=== PATIENT | female | born 1960 | race Caucasian/White ===

== ENCOUNTER 2017-01-26 12:50 | Inpatient (IN) | payer MEDICAID ==
[2017-01-26 13:11] LABS: % BASOPHILS 0.8 % (0.0-2.0); % EOSINOPHILS 0.1 % (0.0-5.0); % LYMPHOCYTES 19.9 % (20.0-50.0); % MONOCYTES 8.4 % (2.0-10.0); % NEUTROPHILS 70.8 % (40.0-80.0); HEMATOCRIT 43.9 % (35.0-45.0); HEMOGLOBIN 14.8 gm/dL (11.7-15.5); MEAN CELL VOLUME 101.4 fl (81-100); MEAN CORPUSCULAR HEMOGLOBIN 34.3 pg (27.0-31.0); MEAN CORPUSCULAR HGB CONC 33.8 pg (28.0-36.0); MEAN PLATELET VOLUME 7.4 fl; NEUTROPHILE ABSOLUTE 6.9 Th/cmm (1.8-8.0); PLATELET COUNT 259 Th/cmm (150-400); RED BLOOD COUNT 4.33 Mil/cmm (3.80-5.10); WHITE BLOOD COUNT 9.8 Th/cmm (4.8-10.8)
[2017-01-26 13:28] LABS: CHOLESTEROL 144 mg/dL (<200); TRIGLYCERIDES 99 mg/dL (<150)
[2017-01-26 13:30] LABS: ALB/GLOB RATIO 1.1 (1.0-1.8); ALKALINE PHOSPHATASE 119 U/L (34-104); ANION GAP 8.6 (7.0-16.0); BILIRUBIN,TOTAL 0.4 mg/dL (0.3-1.0); BUN - UREA NITROGEN 8 mg/dL (7-25); BUN/CREATININE RATIO 13.3; CALCIUM SERUM 8.7 mg/dL (8.6-10.3); CHLORIDE 102 mEq/L (98-107); CREATININE - SERUM 0.6 mg/dL (0.6-1.2); GLUCOSE 135 mg/dL (70-105); POTASSIUM SERUM 3.6 mEq/L (3.5-5.1); SGOT 22 U/L (13-39); SGPT/ALT 15 U/L (7-52); SODIUM SERUM 130 mEq/L (136-145)
--- NOTE | 2017-01-26 13:30 | ED Physician Chart ---
ED Chief Complaint/HPI - Patient Information Date Seen:: 01/26/17 Time Seen:: 13:00 Chief Complaint:: RIGHT LEG PAIN History of Present Illness:: THIS IS A MENTALLY ILL SENIOR LIVING PATIENT WHO WAS SENT HERE FOR AN EVALUATION OF RIGHT HIP AND RIGHT KNEE. SHE STATES THAT SHE DID NOT FALL OR HAVE ANY UNUSUAL ACTIVITY. SHE IS CHRONICALLY ILL WITH MULTIPLE MEDICAL PROBLEMS. Allergies:: Allergies Allergy/AdvReac Type Severity Reaction Status Date / Time No Known Allergies Allergy Verified 01/26/17 12:51 Vitals:: Vital Signs - 8 hr 01/26/17 12:51 Temp 99.7 F HR 86 RR 17 BP 119/87 O2 Sat % 94 Historian:: EMS, Medical Records Review:: Nurse's Note Reviewed, Old Chart Reviewed, Transfer documents Reviewed ED Review of Systems - Review of Systems General/Constitutional: No fever, No chills, No weight loss, No weakness, No diaphoresis, No edema, No loss of appetite Skin: No skin lesions, No rash, No bruising Head: No headache, No light-headedness Eyes: No loss of vision, No pain, No diplopia ENT: No earache, No nasal drainage, No sore throat, No tinnitus Neck: No neck pain, No swelling, No thyromegaly, No stiffness, No mass noted Cardio Vascular: No chest pain, No palpitations, No PND, No orthopnea, No edema Pulmonary: No SOB, No cough, No sputum, No wheezing GI: No nausea, No vomiting, No diarrhea, No pain, No melena, No hematochezia, No constipation, No hematemesis G/U: No dysuria, No frequency, No hematuria Musculoskeletal: Bone or joint pain (RIGHT HIP AND KNEE), No back pain, No muscle pain Endocrine: No polyuria, No polydipsia Psychiatric: No prior psych history, No depression, No anxiety, No suicidal ideation Hematopoietic: No bruising, No lymphadenopathy Allergic/Immuno: No urticaria, No angioedema Neurological: No syncope, No focal symptoms, No weakness, No paresthesia, No headache, No seizure, No dizziness, No confusion, No vertigo ED Past Medical History - Past Medical History Obtainable: Yes Past Medical History: HTN, Arthritis, Dementia, Other (HIV) Social History: Non Smoker, No Alcohol, No Drug Use, Care Facility Medication: Reviewed Family Medical History - Family Member Mother History Unknown: Yes ED Physical Exam - Physical Examination General/Constitutional: Awake, Well-developed, well-nourished, Alert, No distress, GCS 15, Non-toxic appearing, Ambulatory Head: Atraumatic Eyes: Lids, conjuctiva normal, PERRL, EOMI Skin: Nl inspection, No rash, No skin lesions, No ecchymosis, Well hydrated, No lymphadenopathy ENMT: External ears, nose nl, Nasal exam nl, Lips, teeth, gums nl Neck: Nontender, Full ROM w/o pain, No JVD, No nuchal rigidity, No bruit, No mass, No stridor Respiratory: Nl effort/Exclusion, Clear to Auscultation, No Wheeze/Rhonchi/Rales Cardio Vascular: RRR, No murmur, gallop, rubs, NL S1 S2 GI: No tenderness/rebounding/guarding, No organomegaly, No hernia, Normal BS's, Nondistended, No mass/bruits, No McBurney tenderness : No CVA tenderness Extremities: No tenderness or effusion, Full ROM, normal strength in all extremities, No edema, Normal digits & nails Neuro/Psych: Alert/oriented, DTR's symmetric, Normal sensory exam, Normal motor strength, Mood normal, Normal gait, No focal deficits Other Neuro/Psych comments:: MENTAL OFF Misc: normal gait, Normal back, No paraspinal tenderness ED Labs/Radiology/EKG Results - Lab Results Results: Laboratory Tests 01/26/17 13:05 WBC 9.8 RBC 4.33 Hgb 14.8 Hct 43.9 MCV 101.4 H MCH 34.3 H MCHC Differential 33.8 RDW 13.0 Plt Count 259 MPV 7.4 Neutrophils % 70.8 Lymphocytes % 19.9 L Monocytes % 8.4 Eosinophils % 0.1 Basophils % 0.8 ED Septic Shock - . Is Septic Shock (SBP<90, OR Lactate>4 mmol\L) present?: No - <6hrs of presentation: Vital Signs: Vital Signs - 8 hr 01/26/17 12:51 Temp 99.7 F HR 86 RR 17 BP 119/87 O2 Sat % 94
[2017-01-26 13:48] LABS: INR 0.96 (0.5-1.4)
--- NOTE | 2017-01-26 14:16 | Diagnostic Imaging Report ---
Right hip 2 views Indication: pain Comparison: Right knee x-ray the same day Findings: A bipolar right hip and knee arthroplasty seen. There is 1 to 2 mm lucency seen along the cement bone interface of the femoral component. No evidence of an acute fracture or dislocation. Mild degenerative changes of lower lumbar spine are noted. Impression: Bipolar right hip hemiarthroplasty. No evidence of an acute fracture. 1 to 2 mm lucency seen along the cement-bone interface of the femoral prosthesis. This may be within normal limits. Early hardware loosening is considered less likely, however, correlation should be made clinically. In the setting of trauma, if clinical symptoms persist and there is continued concern for an occult fracture, follow up exams in 5-7 days is suggested.
--- NOTE | 2017-01-26 14:17 | Diagnostic Imaging Report ---
Right knee 3 views Indication: pain Comparison: none Findings: Osteopenia is noted. There may have been old trauma to the proximal right fibula. Stress lines versus less likely small enchondromas of the distal femur are noted. [id number] degenerative changes are seen greatest along the lateral knee compartment with chondrocalcinosis noted. No evidence of acute fracture or joint effusion. Distal quadriceps spurring is noted. Impression: No evidence of an acute fracture. Mild to moderate degenerative changes Osteopenia is suspected. Chondrocalcinosis primarily involving the lateral knee compartment. Stress lines versus less likely small enchondromas of the distal femur. In the setting of trauma, if clinical symptoms persist and there is continued concern for an occult fracture, follow up exams in 5-7 days is suggested.
--- NOTE | 2017-01-26 15:39 | Diagnostic Imaging Report ---
CT abdomen and pelvis without intravenous contrast Indication: Abdominal pain Comparison: None, Technique: Axial images were obtained from the lung bases to the bilateral proximal femurs without IV contrast. Coronal reconstructions were made. total DLP: 545, CTDI11.8 FINDINGS: Hypoventilatory atelectatic changes at lung bases are noted. Exam is limited due to motion. Assessment of solid organs is also limited due to lack of IV contrast. No evidence of focal hepatic lesions. No focal splenic or pancreatic lesions identified. There is mild pancreatic gland atrophy. Minimal haziness is seen adjacent the pancreatic head. No focal adrenal lesions. No evidence of hydronephrosis or focal renal lesions. Small fat-containing umbilical hernia is seen. Distended urinary bladder is noted. Copious stool is noted. No evidence of appendicitis. Streak artifact from patient's right hip arthroplasty limits assessment of the pelvis. No free air or free fluid. Mild atherosclerosis is noted. There is a moderate age-indeterminate compression fracture of superior endplate of T12 with 3 to 4 mm posterior retropulsion. Advanced degenerative changes are seen at L5/S1 with 4 mm posterior disc bulging and vacuum disc phenomenon at this level. IMPRESSION: Copious amount of stool noted. Mild haziness is adjacent to the pancreatic head margins. Changes associated with pancreatitis cannot be completely excluded. Please correlate with clinical findings. Moderate age-indeterminate compression fracture of the superior endplate of T12 with 3 to 4 mm posterior retropulsion. Advanced degenerative changes spine at L5/S1.
[2017-01-26] MEDS ORDERED: Albuterol Nebulizer 2.5mg/3mL HHN PRN (20:28)
[2017-01-27 03:39] VITALS: BP 101/64
[2017-01-27] MEDS: D5-0.9%NS 1,000 ML IV SCH ×2 (09:49→21:48)
[2017-01-27] MEDS: Escitalopram Oxalate 5 mg Tab PO SCH (09:57)
[2017-01-27] MEDS: Multivitamin Tab PO SCH (09:58)
[2017-01-27] MEDS: Pantoprazole 40 mg EC Tab PO SCH ×2 (09:58→16:55)
--- NOTE | 2017-01-27 12:08 | Internal Medicine Prog Note ---
Internal Medicine Subjective - Subjective Service Date: 01/27/17 ([id number] [facility] dictated) Internal Medicine Objective - Results Result Diagrams: 01/26/17 13:05 01/26/17 13:05 Recent Labs: Laboratory Last Values WBC 9.8 Th/cmm (4.8-10.8) 01/26/17 13:05 RBC 4.33 Mil/cmm (3.80-5.10) 01/26/17 13:05 Hgb 14.8 gm/dL (11.7-15.5) 01/26/17 13:05 Hct 43.9 % (35.0-45.0) 01/26/17 13:05 MCV 101.4 fl (81-100) H 01/26/17 13:05 MCH 34.3 pg (27.0-31.0) H 01/26/17 13:05 MCHC Differential 33.8 pg (28.0-36.0) 01/26/17 13:05 RDW 13.0 % (11.5-20.0) 01/26/17 13:05 Plt Count 259 Th/cmm (150-400) 01/26/17 13:05 MPV 7.4 fl 01/26/17 13:05 Neutrophils % 70.8 % (40.0-80.0) 01/26/17 13:05 Lymphocytes % 19.9 % (20.0-50.0) L 01/26/17 13:05 Monocytes % 8.4 % (2.0-10.0) 01/26/17 13:05 Eosinophils % 0.1 % (0.0-5.0) 01/26/17 13:05 Basophils % 0.8 % (0.0-2.0) 01/26/17 13:05 PT 10.0 SECONDS (9.5-11.5) 01/26/17 13:05 INR 0.96 (0.5-1.4) 01/26/17 13:05 PTT (Actin FS) 26.6 SECONDS (26.0-38.0) 01/26/17 13:05 Sodium 130 mEq/L (136-145) L 01/26/17 13:05 Potassium 3.6 mEq/L (3.5-5.1) 01/26/17 13:05 Chloride 102 mEq/L (98-107) 01/26/17 13:05 Carbon Dioxide 23.0 mEq/L (21.0-31.0) 01/26/17 13:05 Anion Gap 8.6 (7.0-16.0) 01/26/17 13:05 BUN 8 mg/dL (7-25) 01/26/17 13:05 Creatinine 0.6 mg/dL (0.6-1.2) 01/26/17 13:05 Est GFR ( Amer) > 60.0 ml/min (>90) 01/26/17 13:05 Est GFR (Non-Af Amer) > 60.0 ml/min 01/26/17 13:05 BUN/Creatinine Ratio 13.3 01/26/17 13:05 Glucose 135 mg/dL (70-105) H 01/26/17 13:05 Calcium 8.7 mg/dL (8.6-10.3) 01/26/17 13:05 Total Bilirubin 0.4 mg/dL (0.3-1.0) 01/26/17 13:05 AST 22 U/L (13-39) 01/26/17 13:05 ALT 15 U/L (7-52) 01/26/17 13:05 Alkaline Phosphatase 119 U/L (34-104) H 01/26/17 13:05 Troponin I 0.01 ng/mL (0.01-0.05) 01/26/17 13:05 Total Protein 7.0 gm/dL (6.0-8.3) 01/26/17 13:05 Albumin 3.7 gm/dL (3.7-5.3) 01/26/17 13:05 Globulin 3.3 gm/dL 01/26/17 13:05 Albumin/Globulin Ratio 1.1 (1.0-1.8) 01/26/17 13:05 Triglycerides 99 mg/dL (<150) 01/26/17 13:05 Cholesterol 144 mg/dL (<200) 01/26/17 13:05 LDL Cholesterol Direct 92 mg/dL (75-193) 01/26/17 13:05 HDL Cholesterol 50 mg/dL (23-92) 01/26/17 13:05 TSH 1.94 uIU/ml (0.34-5.60) 01/26/17 13:05 Phenytoin 11.1 ug/ml (10.0-20.0) 01/26/17 13:05 - Physical Exam Vitals and I&O: Vital Signs Temp 98.5 F 01/27/17 04:00 Pulse 73 01/27/17 12:04 Resp 19 01/27/17 04:00 BP 109/64 01/27/17 12:04 Pulse Ox 100 01/27/17 04:00 Intake & Output 01/26/17 01/27/17 01/27/17 18:59 06:59 18:59 Intake Total 0 Balance 0 Weight (lbs) 156 lb 1.6 oz Intake: Oral 0 Other: # Voids 2 # Bowel Movements 0 Active Medications: Current Medications Acetaminophen (Tylenol) 650 mg PO Q4H PRN PRN Reason: Pain Or Fever above 101 Stop: 03/27/17 20:27 Albuterol Sulfate (Albuterol 2.5mg/3ml Neb Ud) 2.5 mg HHN Q4HRT PENDING SALE TO [facility] Stop: 03/28/17 10:59 Albuterol Sulfate (Albuterol 2.5mg/3ml Neb Ud) 2.5 mg HHN Q2HRT PRN PRN Reason: Shortness of Breath or Wheeze Stop: 03/27/17 20:27 Alendronate Sodium (Fosamax) 70 mg PO Q7D@0730 PENDING SALE TO [facility] Stop: 04/02/17 07:29 Aspirin (Ecotrin) 81 mg PO DAILY PENDING SALE TO [facility] Stop: 03/28/17 08:59 Last Admin: 01/27/17 09:57 Dose: Not Given Baclofen (Lioresal) 5 mg PO DAILY RIK Stop: 03/28/17 08:59 Last Admin: 01/27/17 09:57 Dose: Not Given Budesonide (Pulmicort) 0.5 mg HHN BIDRT PENDING SALE TO [facility] Stop: 03/28/17 08:59 Calcium Carbonate (Os-Howard) 500 mg PO BID PENDING SALE TO [facility] Stop: 03/28/17 08:59 Last Admin: 01/27/17 09:57 Dose: Not Given Cholecalciferol (Vitamin D3) 1,000 iu PO BID PENDING SALE TO [facility] Stop: 03/28/17 08:59 Last Admin: 01/27/17 09:57 Dose: Not Given Docusate Sodium (Colace) 100 mg PO BID PENDING SALE TO [facility] Stop: 03/28/17 08:59 Last Admin: 01/27/17 12:05 Dose: Not Given Enalapril Maleate (Vasotec) 5 mg PO BID PENDING SALE TO [facility] Stop: 03/28/17 08:59 Last Admin: 01/27/17 12:04 Dose: Not Given Escitalopram Oxalate (Lexapro) 5 mg PO DAILY RIK PRN Reason: Protocol Stop: 03/28/17 08:59 Last Admin: 01/27/17 09:57 Dose: Not Given Dextrose/Sodium Chloride (D5-0.9%Ns) 1,000 mls @ 80 mls/hr IV .[id number] PENDING SALE TO [facility] Stop: 03/27/17 20:29 Last Admin: 01/27/17 09:49 Dose: 80 mls/hr Ipratropium [place] (Atrovent Neb 0.5mg/2.5ml) 0.5 mg IH Q2HRT PRN PRN Reason: Shortness of Breath or Wheeze Stop: 03/27/17 20:27 Mirtazapine (Remeron) 15 mg PO HS RIK PRN Reason: Protocol Stop: 03/27/17 20:59 Last Admin: 01/26/17 20:43 Dose: Not Given Morphine Sulfate (Morphine) 2 mg IVP Q4H PRN PRN Reason: Abdominal Pain Stop: 03/27/17 20:27 Multivitamins/Vitamin C (Theragran) 1 tab PO DAILY PENDING SALE TO [facility] Stop: 03/28/17 08:59 Last Admin: 01/27/17 09:58 Dose: Not Given Olanzapine (Zyprexa) 15 mg PO HS RIK PRN Reason: Protocol Stop: 03/27/17 20:59 Last Admin: 01/26/17 20:43 Dose: Not Given Ondansetron HCl (Zofran) 4 mg IV Q8H PRN PRN Reason: Nausea / Vomiting Stop: 03/27/17 20:27 Oxybutynin Chloride (Ditropan) 5 mg PO BID PENDING SALE TO [facility] Stop: 03/28/17 08:59 Last Admin: 01/27/17 09:58 Dose: Not Given Pantoprazole Sodium (Protonix) 40 mg PO BID PENDING SALE TO [facility] Stop: 03/28/17 08:59 Last Admin: 01/27/17 09:58 Dose: Not Given Sustiva 600mg Tablet 1 PO HS PENDING SALE TO [facility] Stop: 03/27/17 20:59 Emtrictabine/Tenofofir 200mg-25mg Tab 1 PO HS RIK Stop: 03/27/17 20:59 Phenytoin (Dilantin) 100 mg PO BID RIK Stop: 03/28/17 08:59 Last Admin: 01/27/17 09:58 Dose: Not Given Simvastatin (Zocor) 20 mg PO QPM RIK PRN Reason: Protocol Stop: 03/28/17 16:59 Zolpidem Tartrate (Ambien) 10 mg PO HS PRN PRN Reason: Insomnia Stop: 03/27/17 20:27 Internal Medicine Assmt/Plan - Assessment Assessment: ABDOMINAL PAIN HTN HIV HYPONATREMIA
--- NOTE | 2017-01-27 13:20 | History & Physical ---
ADMIT DATE: 01/27/2017 CHIEF COMPLAINT: Abdominal pain. HISTORY OF PRESENT ILLNESS: This is a 56-year-old female who is a resident of [facility] who is brought here to [facility] with a 1-day history of abdominal pain. The patient denies any nausea, vomiting at this time. PAST MEDICAL HISTORY: Hypertension, arthritis, dementia, HIV. SOCIAL HISTORY: The patient is a [facility] resident. MEDICATIONS: Please see medication reconciliation sheet. FAMILY HISTORY: Noncontributory. REVIEW OF SYSTEMS: GENERAL: Denies any fevers and chills. CARDIOVASCULAR: Denies any chest pain. RESPIRATORY: Denies any shortness of breath. GASTROINTESTINAL: Denies any nausea, vomiting, complaints of abdominal pain. All other systems are reviewed by me and are negative. PHYSICAL EXAMINATION: GENERAL: The patient is awake, alert, in no distress. VITAL SIGNS: Temperature 99.5, heart rate 75, blood pressure 133/71, respirations 19, O2 100%. HEENT: Head; normocephalic, atraumatic. NECK: Supple. No mass. LUNGS: Clear bilaterally. HEART: Regular rate and rhythm. ABDOMEN: Soft, nontender. LABORATORY DATA: WBC 9.8, H and H 14.8 and 43.9, platelets of 259. Sodium 130, potassium 2.6, chloride 102, carbon dioxide 23.0, BUN 8, creatinine 0.6. DIAGNOSTICS: The patient had a CT of the abdomen and pelvis done and the impression is copious amount of stool noted, mild haziness adjacent to the pancreatic head margins, changes associated with pancreatitis cannot be completely excluded. Please correlate with clinical findings, moderate age indeterminant compression fracture of the superior endplate of T12 with 3-4 mm posterior retropulsion, advanced degenerative changes of spine at L5-S1. A knee x-ray was also obtained and the impression is no evidence of acute fracture. Hip x-ray was also done and impression is bipolar right hip hemiarthroplasty, no evidence of acute fracture. ASSESSMENT: 1. Abdominal pain. 2. Hyponatremia. 3. Hypertension. 4. Arthritis. 5. Dementia. 6. Human immunodeficiency virus. PLAN: The patient to be admitted to the med/surg unit. IV fluids for hydration. GI consult on board, Protonix b.i.d. We will continue to monitor the patient. [facility]# [id number]
[2017-01-27] MEDS: Morphine Sulfate 2 mg/mL 1mL Syr IVP PRN (21:39)
--- NOTE | 2017-01-27 21:53 | Consultation ---
DATE OF CONSULTATION: 01/27/2017 INPATIENT GI CONSULTATION CONSULTING PHYSICIAN: Dr. Angulo. REASON FOR CONSULTATION: Abdominal pain. HISTORY OF PRESENT ILLNESS: The patient is a 56-year-old female with past medical history significant for HIV, COPD, hypertension, and hyperlipidemia, who is presenting with abdominal pain. The patient reports that she actually reports her main issue to be right-sided leg pain and inability to ambulate. She notes that her pain is in her right knee all the way down to her right foot and that is causing her the inability to walk at her board and care facility. She repeatedly reports that she does not have any abdominal pain nor did she have any abdominal pain in the previous days. She does note that she has not had a bowel movement since last , which is about 6 days prior to admission. She notes that she usually takes laxatives [facility] her [facility], although she does not know which type they are. She denies any vomiting, any blood in her stool, change in bowel habits other than constipation. She denies any skin or eye changes, changes in mental concentration or tremor. She does report having a colonoscopy and thinks this was in 2007 and thinks this was normal. PAST MEDICAL HISTORY: HIV, COPD, hypertension, and hyperlipidemia. PAST SURGICAL HISTORY: Surgery on her right hip. FAMILY HISTORY: The patient denies any history of colon or GI stomach cancers. SOCIAL HISTORY: The [facility]. She smokes half a pack of cigarettes per day. Denies alcohol use. ALLERGIES: No known drug allergies. CURRENT MEDICATIONS: Tylenol, albuterol, alendronate, aspirin, baclofen, Pulmicort, vitamin D3, Vasotec, Lexapro, Remeron, morphine as needed, Zyprexa, Protonix, Emtricitabine, tenofovir, Dilantin, Ambien, and Zocor. PHYSICAL EXAMINATION: VITAL SIGNS: Blood pressure is 133/71, pulse of 75, temperature 98.5 Fahrenheit, respiratory rate 19, and oxygen saturation 100% on room air. GENERAL: The patient is lying flat in bed in no apparent distress. Alert and oriented x 3. HEENT: There is no scleral icterus. Pupils are equal and reactive. Extraocular muscles intact. Moist mucous membranes. NECK: No obvious JVD, no thyromegaly, and no lymphadenopathy. CHEST: No obvious wheezes or rales. CARDIOVASCULAR: S1, S2 present. Regular rate and rhythm. ABDOMEN: Soft, nontender to deep palpation with light palpation, no guarding, no rebound. No fluid wave. EXTREMITIES: No pitting edema. Positive pulses. SKIN: No obvious jaundice. No other rashes. LABORATORY DATA: Sodium is 130, potassium 3.6, BUN 8, creatinine 0.6, total bilirubin 0.4, AST 22, ALT 15, alkaline phosphatase 119. TSH 1.9. White blood cell count 9.8, hemoglobin 14.8, and platelet count 259,000. INR 0.9. IMAGING: Abdomen and pelvis CT was performed without contrast. This shows there is a copious amount of colonic stool. No evidence of appendicitis. No focal splenic or pancreatic lesion. Mild pancreatic gland atrophy. Minimal haziness is seen adjacent to the pancreatic head. Pancreatitis cannot be completely excluded. IMPRESSION: This is a 56-year-old female with past medical history significant for HIV on retroviral therapy, chronic obstructive pulmonary disease, who presents with right-sided leg pain and possibly with previous abdominal pain. 1. HIV. 2. Abdominal pain. 3. Constipation. 4. Chronic obstructive pulmonary disease. DISCUSSION: At the current time, the patient does not report any sort of abdominal pain . The history may be unreliable and she may have had abdominal pain at her board and care facility. She does note that her last bowel movement was several days ago, and her CT shows that her colon is full of stool. Thus, it is reasonable to assume that the obstipation may be causing some of her discomfort and she will do well with laxative therapy. The patient also is due for colonoscopy given that her last exam was in 2007, and she has not had a change in bowel habits. Thus, we will start laxative therapy today, but will not pursue colonoscopy tomorrow given her sodium level needs to be further corrected. If her sodium is better up tomorrow, we can continue laxatives and plan for colonoscopy the next day. PLAN: 1. Laxative therapy for now. Colonoscopy planned later in this admission. 2. Can have clears today. 3. Continue supportive care as per primary. I will continue to follow. Thank you for allowing me to participate in the care of this patient. Please call with any further questions. JOB# [id number]
[2017-01-28 06:09] LABS: % BASOPHILS 0.3 % (0.0-2.0); % EOSINOPHILS 0.6 % (0.0-5.0); % LYMPHOCYTES 24.4 % (20.0-50.0); % MONOCYTES 7.2 % (2.0-10.0); % NEUTROPHILS 67.5 % (40.0-80.0); HEMATOCRIT 41.2 % (35.0-45.0); HEMOGLOBIN 14.2 gm/dL (11.7-15.5); MEAN CELL VOLUME 100.4 fl (81-100); MEAN CORPUSCULAR HEMOGLOBIN 34.6 pg (27.0-31.0); MEAN CORPUSCULAR HGB CONC 34.5 pg (28.0-36.0); NEUTROPHILE ABSOLUTE 5.9 Th/cmm (1.8-8.0); PLATELET COUNT 239 Th/cmm (150-400); WHITE BLOOD COUNT 8.7 Th/cmm (4.8-10.8)
[2017-01-28 06:38] LABS: ANION GAP 9.8 (7.0-16.0); BUN - UREA NITROGEN 6 mg/dL (7-25); CALCIUM SERUM 8.4 mg/dL (8.6-10.3); CARBON DIOXIDE 20.8 mEq/L (21.0-31.0); CHLORIDE 112 mEq/L (98-107); CREATININE - SERUM 0.4 mg/dL (0.6-1.2); GLUCOSE 117 mg/dL (70-105); POTASSIUM SERUM 3.6 mEq/L (3.5-5.1); SODIUM SERUM 139 mEq/L (136-145)
[2017-01-28] MEDS: Escitalopram Oxalate 5 mg Tab PO SCH (08:36)
[2017-01-28] MEDS: Morphine Sulfate 2 mg/mL 1mL Syr IVP PRN ×2 (08:37→23:46)
[2017-01-28] MEDS: Multivitamin Tab PO SCH (08:45)
[2017-01-28] MEDS: Pantoprazole 40 mg EC Tab PO SCH (08:45)
--- NOTE | 2017-01-28 10:58 | Internal Medicine Prog Note ---
Internal Medicine Subjective - Subjective Service Date: 01/28/17 Patient seen and examined:: with staff Patient is:: awake, confused Per staff patient has:: no adverse event, tolerating meds Internal Medicine Objective - Results Result Diagrams: 01/28/17 05:40 01/28/17 05:40 Recent Labs: Laboratory Last Values WBC 8.7 Th/cmm (4.8-10.8) 01/28/17 05:40 RBC 4.10 Mil/cmm (3.80-5.10) 01/28/17 05:40 Hgb 14.2 gm/dL (11.7-15.5) 01/28/17 05:40 Hct 41.2 % (35.0-45.0) 01/28/17 05:40 MCV 100.4 fl (81-100) H 01/28/17 05:40 MCH 34.6 pg (27.0-31.0) H 01/28/17 05:40 MCHC Differential 34.5 pg (28.0-36.0) 01/28/17 05:40 RDW 13.0 % (11.5-20.0) 01/28/17 05:40 Plt Count 239 Th/cmm (150-400) 01/28/17 05:40 MPV 8.0 fl 01/28/17 05:40 Neutrophils % 67.5 % (40.0-80.0) 01/28/17 05:40 Lymphocytes % 24.4 % (20.0-50.0) 01/28/17 05:40 Monocytes % 7.2 % (2.0-10.0) 01/28/17 05:40 Eosinophils % 0.6 % (0.0-5.0) 01/28/17 05:40 Basophils % 0.3 % (0.0-2.0) 01/28/17 05:40 PT 10.0 SECONDS (9.5-11.5) 01/26/17 13:05 INR 0.96 (0.5-1.4) 01/26/17 13:05 PTT (Actin FS) 26.6 SECONDS (26.0-38.0) 01/26/17 13:05 Sodium 139 mEq/L (136-145) 01/28/17 05:40 Potassium 3.6 mEq/L (3.5-5.1) 01/28/17 05:40 Chloride 112 mEq/L (98-107) H 01/28/17 05:40 Carbon Dioxide 20.8 mEq/L (21.0-31.0) L 01/28/17 05:40 Anion Gap 9.8 (7.0-16.0) 01/28/17 05:40 BUN 6 mg/dL (7-25) L 01/28/17 05:40 Creatinine 0.4 mg/dL (0.6-1.2) L 01/28/17 05:40 Est GFR ( Amer) > 60.0 ml/min (>90) 01/28/17 05:40 Est GFR (Non-Af Amer) > 60.0 ml/min 01/28/17 05:40 BUN/Creatinine Ratio 15.0 01/28/17 05:40 Glucose 117 mg/dL (70-105) H 01/28/17 05:40 Calcium 8.4 mg/dL (8.6-10.3) L 01/28/17 05:40 Total Bilirubin 0.4 mg/dL (0.3-1.0) 01/26/17 13:05 AST 22 U/L (13-39) 01/26/17 13:05 ALT 15 U/L (7-52) 01/26/17 13:05 Alkaline Phosphatase 119 U/L (34-104) H 01/26/17 13:05 Troponin I 0.01 ng/mL (0.01-0.05) 01/26/17 13:05 Total Protein 7.0 gm/dL (6.0-8.3) 01/26/17 13:05 Albumin 3.7 gm/dL (3.7-5.3) 01/26/17 13:05 Globulin 3.3 gm/dL 01/26/17 13:05 Albumin/Globulin Ratio 1.1 (1.0-1.8) 01/26/17 13:05 Triglycerides 99 mg/dL (<150) 01/26/17 13:05 Cholesterol 144 mg/dL (<200) 01/26/17 13:05 LDL Cholesterol Direct 92 mg/dL (75-193) 01/26/17 13:05 HDL Cholesterol 50 mg/dL (23-92) 01/26/17 13:05 TSH 1.94 uIU/ml (0.34-5.60) 01/26/17 13:05 Phenytoin 11.1 ug/ml (10.0-20.0) 01/26/17 13:05 RPR NONREACTIVE (NONREACTIVE) 01/26/17 13:05 - Physical Exam Vitals and I&O: Vital Signs Temp 98.3 F 01/28/17 08:00 Pulse 78 01/28/17 08:36 Resp 18 01/28/17 08:00 BP 99/74 01/28/17 08:36 Pulse Ox 96 01/28/17 04:00 Intake & Output 01/27/17 01/28/17 01/28/17 18:59 06:59 18:59 Intake Total 450 958.667 Balance 450 958.667 Weight (lbs) 156 lb 1.6 oz 161 lb 14.4 oz Intake: Intake, IV Amount 958.667 D5-0.9%Ns 1,000 ml @ 80 958.667 mls/hr IV .[id number] [facility] Rx #:[id number] Oral 450 Other: # Bowel Movements 1 Active Medications: Current Medications Acetaminophen (Tylenol) 650 mg PO Q4H PRN PRN Reason: Pain Or Fever above 101 Stop: 03/27/17 20:27 Last Admin: 01/27/17 15:04 Dose: 650 mg Albuterol Sulfate (Albuterol 2.5mg/3ml Neb Ud) 2.5 mg HHN Q4HRT [facility] Stop: 03/28/17 10:59 Albuterol Sulfate (Albuterol 2.5mg/3ml Neb Ud) 2.5 mg HHN Q2HRT PRN PRN Reason: Shortness of Breath or Wheeze Stop: 03/27/17 20:27 Alendronate Sodium (Fosamax) 70 mg PO Q7D@0730 [facility] Stop: 04/02/17 07:29 Aspirin (Ecotrin) 81 mg PO DAILY [facility] Stop: 03/28/17 08:59 Last Admin: 01/28/17 08:35 Dose: 81 mg Baclofen (Lioresal) 5 mg PO DAILY [facility] Stop: 03/28/17 08:59 Last Admin: 01/28/17 08:35 Dose: 5 mg Budesonide (Pulmicort) 0.5 mg HHN BIDRT [facility] Stop: 03/28/17 08:59 Calcium Carbonate (Os-Howard) 500 mg PO BID RIK Stop: 03/28/17 08:59 Last Admin: 01/28/17 08:35 Dose: 500 mg Cholecalciferol (Vitamin D3) 1,000 iu PO BID [facility] Stop: 03/28/17 08:59 Last Admin: 01/28/17 08:35 Dose: 1,000 iu Docusate Sodium (Colace) 100 mg PO BID [facility] Stop: 03/28/17 08:59 Last Admin: 01/28/17 08:35 Dose: 100 mg Enalapril Maleate (Vasotec) 5 mg PO BID [facility] Stop: 03/28/17 08:59 Last Admin: 01/28/17 08:36 Dose: Not Given Escitalopram Oxalate (Lexapro) 5 mg PO DAILY [facility] PRN Reason: Protocol Stop: 03/28/17 08:59 Last Admin: 01/28/17 08:36 Dose: 5 mg Dextrose/Sodium Chloride (D5-0.9%Ns) 1,000 mls @ 80 mls/hr IV .[id number] [facility] Stop: 03/27/17 20:29 Last Admin: 01/27/17 21:48 Dose: 80 mls/hr Ipratropium [place] (Atrovent Neb 0.5mg/2.5ml) 0.5 mg IH Q2HRT PRN PRN Reason: Shortness of Breath or Wheeze Stop: 03/27/17 20:27 Mirtazapine (Remeron) 15 mg PO HS RIK PRN Reason: Protocol Stop: 03/27/17 20:59 Last Admin: 01/27/17 21:36 Dose: 15 mg Morphine Sulfate (Morphine) 2 mg IVP Q4H PRN PRN Reason: Abdominal Pain Stop: 03/27/17 20:27 Last Admin: 01/28/17 08:37 Dose: 2 mg Multivitamins/Vitamin C (Theragran) 1 tab PO DAILY [facility] Stop: 03/28/17 08:59 Last Admin: 01/28/17 08:45 Dose: 1 tab Olanzapine (Zyprexa) 15 mg PO HS RIK PRN Reason: Protocol Stop: 03/27/17 20:59 Last Admin: 01/27/17 21:36 Dose: 15 mg Ondansetron HCl (Zofran) 4 mg IV Q8H PRN PRN Reason: Nausea / Vomiting Stop: 03/27/17 20:27 Oxybutynin Chloride (Ditropan) 5 mg PO BID [facility] Stop: 03/28/17 08:59 Last Admin: 01/28/17 08:45 Dose: 5 mg Pantoprazole Sodium (Protonix) 40 mg PO BID [facility] Stop: 03/28/17 08:59 Last Admin: 01/28/17 08:45 Dose: 40 mg Sustiva 600mg Tablet 1 PO HS [facility] Stop: 03/27/17 20:59 Emtrictabine/Tenofofir 200mg-25mg Tab 1 PO HS [facility] Stop: 03/27/17 20:59 Phenytoin (Dilantin) 100 mg PO BID [facility] Stop: 03/28/17 08:59 Last Admin: 01/28/17 08:36 Dose: 100 mg Simvastatin (Zocor) 20 mg PO QPM [facility] PRN Reason: Protocol Stop: 03/28/17 16:59 Last Admin: 01/27/17 16:55 Dose: 20 mg Zolpidem Tartrate (Ambien) 10 mg PO HS PRN PRN Reason: Insomnia Stop: 03/27/17 20:27 General: weak, alert HEENT: NC/AT, PERRLA Neck: Supple Lungs: CTAB Cardiovascular: RRR, Normal S1, Normal S2, without murmur Abdomen: soft, non-tender, non-distended, positive bowel sound Extremities: excoriation Neurological: alert Internal Medicine Assmt/Plan - Assessment Assessment: ABDOMINAL PAIN HTN HIV HYPONATREMIA-IMPROVED FECAL IMPACTION - Plan Plan: gi f/u continue ivf for hydration monitor electrolytes dc planning in am once cleared by gi
[2017-01-28] MEDS: TENOFOVIR PO SCH (20:50)
[2017-01-28] MEDS: SUSTIVA 600 MG PO SCH (20:50)
[2017-01-28] MEDS: EMTRICITABINE PO SCH (20:50)
[2017-01-28] MEDS: D5-0.9%NS 1,000 ML IV SCH (23:48)
[2017-01-29 05:06] LABS: % BASOPHILS 0.6 % (0.0-2.0); % EOSINOPHILS 1.3 % (0.0-5.0); % LYMPHOCYTES 27.7 % (20.0-50.0); % MONOCYTES 6.6 % (2.0-10.0); % NEUTROPHILS 63.8 % (40.0-80.0); HEMOGLOBIN 13.9 gm/dL (12-16); MEAN CELL VOLUME 100.3 fl (81-100); MEAN CORPUSCULAR HEMOGLOBIN 33.9 pg (27.0-31.0); MEAN CORPUSCULAR HGB CONC 33.8 pg (28.0-36.0); MEAN PLATELET VOLUME 7.7 fl; PLATELET COUNT 271 Th/cmm (150-400); RED BLOOD COUNT 4.09 Mil/cmm (3.80-5.10); RED CELL DISTRIBUTION WIDTH 12.5 % (11.5-20.0)
[2017-01-29 05:09] LABS: WHITE BLOOD COUNT 7.7 Th/cmm (4.8-10.8)
[2017-01-29 05:21] LABS: INR 1.11 (0.5-1.4); PROTHROMBIN TIME (TEST) 11.6 SECONDS (9.5-11.5)
[2017-01-29 05:24] LABS: ANION GAP 8.6 (7.0-16.0); BUN - UREA NITROGEN 4 mg/dL (7-25); CALCIUM SERUM 8.5 mg/dL (8.6-10.3); CARBON DIOXIDE 22.9 mEq/L (21.0-31.0); CHLORIDE 106 mEq/L (98-107); CREATININE - SERUM 0.4 mg/dL (0.6-1.2); GLUCOSE 108 mg/dL (70-105); POTASSIUM SERUM 3.5 mEq/L (3.5-5.1); SODIUM SERUM 134 mEq/L (136-145)
[2017-01-29] MEDS: Morphine Sulfate 2 mg/mL 1mL Syr IVP PRN ×4 (06:12→21:03)
--- NOTE | 2017-01-29 08:21 | Diagnostic Imaging Report ---
Portable chest x-ray HISTORY: Shortness of breath, preoperative Allowing for portable technique and a poor inspiration, the overall heart size appears normal. No focal pulmonary processes. No hilar or mediastinal abnormalities. IMPRESSION: No acute abnormalities
[2017-01-29] MEDS: Pantoprazole 40 mg EC Tab PO SCH ×2 (09:21→16:38)
[2017-01-29] MEDS: Escitalopram Oxalate 5 mg Tab PO SCH (09:22)
[2017-01-29] MEDS: Multivitamin Tab PO SCH (09:22)
--- NOTE | 2017-01-29 10:42 | Operative Report ---
DATE OF SURGERY: 01/29/2017 PROCEDURE: Colonoscopy. ENDOSCOPIST: Wai Chavira M.D. PREOPERATIVE DIAGNOSES: Abdominal pain, change in bowel habits, history of colon polyps. POSTOPERATIVE DIAGNOSIS: Colon polyps. INDICATIONS: The patient is a 56-year-old female who reports a past medical history of colonoscopy in the past with polyps found, HIV positive on retroviral therapy, who presented with abdominal pain, fecal impaction, and change in bowel habits. She is here for colonoscopy. CONSENT: Informed consent was obtained from the patient. The risks and benefits of the procedure were explained to the patient and included, but are not limited to infection, bleeding, perforation, need for surgery, cardiopulmonary complications, missed pathology, and . The patient indicated her understanding of these risks and wished to go forward with the procedure and signed the consent form. ANESTHESIA: General anesthesia was used under the care of an anesthesiologist. PROCEDURE IN DETAIL: After the administration of general anesthesia, the patient was placed in the left lateral decubitus position. A rectal exam was performed and was normal. Next, a well lubricated colonoscope was introduced into the anus and guided under direct visualization to the level of the cecum. The scope was then slowly withdrawn making sure to examine the entire colonic mucosa slowly and carefully and the scope was withdrawn towards the anus. Upon completion of the procedure, the scope was fully retrieved and the patient was recovered without complication. FINDINGS: The [place] bowel prep score in the right colon was 2, in the mid colon was 3, and in the left colon was 3. There was a 5 mm cecal polyp that was removed with jumbo biopsy forceps. A 4 mm transverse colon polyp was removed with jumbo biopsy forceps. A 5 mm semi-pedunculated polyp was found in the sigmoid colon and removed with jumbo biopsy forceps. There were no mass lesions otherwise found in the colon, no evidence of diverticulosis. There was one area that looked like a telangiectasia in the rectum; as this was not bleeding and there was no history of bleeding, no intervention was performed. There were medium sized internal hemorrhoids. IMPRESSION AND RECOMMENDATIONS: Three small colonic polyps were removed from the colon and will be sent for pathology. If these are confirmed to be all tubular adenomas, her next colonoscopy will be due in 3 years, if less than three of these are tubular adenomas next colonoscopy will be due in 5-10 years. I recommend that the patient be maintained on a strong bowel regimen to prevent constipation and fecal impaction and abdominal pain in her board and care facility. Thank you for allowing me to participate in the care of this patient. Please call with any further questions. [facility]# [id number] [id number]
[2017-01-29] MEDS: D5-0.9%NS 1,000 ML IV SCH ×2 (10:48→21:02)
--- NOTE | 2017-01-29 12:11 | Internal Medicine Prog Note ---
Internal Medicine Subjective - Subjective Service Date: 01/29/17 (S/P COLONOSCOPY ) Patient seen and examined:: with staff Patient is:: awake, confused Per staff patient has:: no adverse event, tolerating meds Internal Medicine Objective - Results Result Diagrams: 01/29/17 04:44 01/29/17 04:44 Recent Labs: Laboratory Last Values WBC 7.7 Th/cmm (4.8-10.8) 01/29/17 04:44 RBC 4.09 Mil/cmm (3.80-5.10) 01/29/17 04:44 Hgb 13.9 gm/dL (12-16) 01/29/17 04:44 Hct 41.0 % (41.0-60) 01/29/17 04:44 MCV 100.3 fl (81-100) H 01/29/17 04:44 MCH 33.9 pg (27.0-31.0) H 01/29/17 04:44 MCHC Differential 33.8 pg (28.0-36.0) 01/29/17 04:44 RDW 12.5 % (11.5-20.0) 01/29/17 04:44 Plt Count 271 Th/cmm (150-400) 01/29/17 04:44 MPV 7.7 fl 01/29/17 04:44 Neutrophils % 63.8 % (40.0-80.0) 01/29/17 04:44 Lymphocytes % 27.7 % (20.0-50.0) 01/29/17 04:44 Monocytes % 6.6 % (2.0-10.0) 01/29/17 04:44 Eosinophils % 1.3 % (0.0-5.0) 01/29/17 04:44 Basophils % 0.6 % (0.0-2.0) 01/29/17 04:44 PT 11.6 SECONDS (9.5-11.5) H 01/29/17 04:44 INR 1.11 (0.5-1.4) 01/29/17 04:44 PTT (Actin FS) 26.6 SECONDS (26.0-38.0) 01/26/17 13:05 Sodium 134 mEq/L (136-145) L 01/29/17 04:44 Potassium 3.5 mEq/L (3.5-5.1) 01/29/17 04:44 Chloride 106 mEq/L (98-107) 01/29/17 04:44 Carbon Dioxide 22.9 mEq/L (21.0-31.0) 01/29/17 04:44 Anion Gap 8.6 (7.0-16.0) 01/29/17 04:44 BUN 4 mg/dL (7-25) L 01/29/17 04:44 Creatinine 0.4 mg/dL (0.6-1.2) L 01/29/17 04:44 Est GFR ( Amer) > 60.0 ml/min (>90) 01/29/17 04:44 Est GFR (Non-Af Amer) > 60.0 ml/min 01/29/17 04:44 BUN/Creatinine Ratio 10.0 01/29/17 04:44 Glucose 108 mg/dL (70-105) H 01/29/17 04:44 Calcium 8.5 mg/dL (8.6-10.3) L 01/29/17 04:44 Total Bilirubin 0.4 mg/dL (0.3-1.0) 01/26/17 13:05 AST 22 U/L (13-39) 01/26/17 13:05 ALT 15 U/L (7-52) 01/26/17 13:05 Alkaline Phosphatase 119 U/L (34-104) H 01/26/17 13:05 Troponin I 0.01 ng/mL (0.01-0.05) 01/26/17 13:05 Total Protein 7.0 gm/dL (6.0-8.3) 01/26/17 13:05 Albumin 3.7 gm/dL (3.7-5.3) 01/26/17 13:05 Globulin 3.3 gm/dL 01/26/17 13:05 Albumin/Globulin Ratio 1.1 (1.0-1.8) 01/26/17 13:05 Triglycerides 99 mg/dL (<150) 01/26/17 13:05 Cholesterol 144 mg/dL (<200) 01/26/17 13:05 LDL Cholesterol Direct 92 mg/dL (75-193) 01/26/17 13:05 HDL Cholesterol 50 mg/dL (23-92) 01/26/17 13:05 TSH 1.94 uIU/ml (0.34-5.60) 01/26/17 13:05 Phenytoin 11.1 ug/ml (10.0-20.0) 01/26/17 13:05 RPR NONREACTIVE (NONREACTIVE) 01/26/17 13:05 - Physical Exam Vitals and I&O: Vital Signs Temp 98.3 F 01/29/17 08:00 Pulse 63 01/29/17 09:22 Resp 18 01/29/17 08:15 BP 96/60 01/29/17 09:22 Pulse Ox 94 01/29/17 08:15 Intake & Output 01/28/17 01/29/17 01/29/17 18:59 06:59 18:59 Intake Total 1700 360 880 Balance 1700 360 880 Weight (lbs) 161 lb 14.4 oz 165 lb 3 oz Intake: Intake, IV Amount 1000 880 D5-0.9%Ns 1,000 ml @ 80 1000 880 mls/hr IV .[id number] [facility] Rx #:[id number] Oral 700 360 Other: # Voids 4 3 # Bowel Movements 3 3 Active Medications: Current Medications Acetaminophen (Tylenol) 650 mg PO Q4H PRN PRN Reason: Pain Or Fever above 101 Stop: 03/27/17 20:27 Last Admin: 01/27/17 15:04 Dose: 650 mg Albuterol Sulfate (Albuterol 2.5mg/3ml Neb Ud) 2.5 mg HHN Q4HRT [facility] Stop: 03/28/17 10:59 Albuterol Sulfate (Albuterol 2.5mg/3ml Neb Ud) 2.5 mg HHN Q2HRT PRN PRN Reason: Shortness of Breath or Wheeze Stop: 03/27/17 20:27 Alendronate Sodium (Fosamax) 70 mg PO Q7D@0730 [facility] Stop: 04/02/17 07:29 Aspirin (Ecotrin) 81 mg PO DAILY [facility] Stop: 03/28/17 08:59 Last Admin: 01/29/17 09:21 Dose: Not Given Baclofen (Lioresal) 5 mg PO DAILY [facility] Stop: 03/28/17 08:59 Last Admin: 01/29/17 09:21 Dose: Not Given Budesonide (Pulmicort) 0.5 mg HHN BIDRT [facility] Stop: 03/28/17 08:59 Calcium Carbonate (Os-Howard) 500 mg PO BID [facility] Stop: 03/28/17 08:59 Last Admin: 01/29/17 09:21 Dose: Not Given Cholecalciferol (Vitamin D3) 1,000 iu PO BID [facility] Stop: 03/28/17 08:59 Last Admin: 01/29/17 09:21 Dose: Not Given Docusate Sodium (Colace) 100 mg PO BID [facility] Stop: 03/28/17 08:59 Last Admin: 01/29/17 09:21 Dose: Not Given Enalapril Maleate (Vasotec) 5 mg PO BID [facility] Stop: 03/28/17 08:59 Last Admin: 01/29/17 09:22 Dose: Not Given Escitalopram Oxalate (Lexapro) 5 mg PO DAILY [facility] PRN Reason: Protocol Stop: 03/28/17 08:59 Last Admin: 01/29/17 09:22 Dose: Not Given Dextrose/Sodium Chloride (D5-0.9%Ns) 1,000 mls @ 80 mls/hr IV .[id number] [facility] Stop: 03/27/17 20:29 Last Admin: 01/29/17 10:48 Dose: 80 mls/hr Ipratropium [place] (Atrovent Neb 0.5mg/2.5ml) 0.5 mg IH Q2HRT PRN PRN Reason: Shortness of Breath or Wheeze Stop: 03/27/17 20:27 Mirtazapine (Remeron) 15 mg PO HS RIK PRN Reason: Protocol Stop: 03/27/17 20:59 Last Admin: 01/28/17 20:50 Dose: 15 mg Morphine Sulfate (Morphine) 2 mg IVP Q4H PRN PRN Reason: Abdominal Pain Stop: 03/27/17 20:27 Last Admin: 01/29/17 06:12 Dose: 2 mg Multivitamins/Vitamin C (Theragran) 1 tab PO DAILY [facility] Stop: 03/28/17 08:59 Last Admin: 01/29/17 09:22 Dose: Not Given Olanzapine (Zyprexa) 15 mg PO HS RIK PRN Reason: Protocol Stop: 03/27/17 20:59 Last Admin: 01/28/17 20:50 Dose: 15 mg Ondansetron HCl (Zofran) 4 mg IV Q8H PRN PRN Reason: Nausea / Vomiting Stop: 03/27/17 20:27 Last Admin: 01/28/17 21:10 Dose: 4 mg Oxybutynin Chloride (Ditropan) 5 mg PO BID [facility] Stop: 03/28/17 08:59 Last Admin: 01/29/17 09:22 Dose: Not Given Pantoprazole Sodium (Protonix) 40 mg PO BID [facility] Stop: 03/28/17 08:59 Last Admin: 01/29/17 09:21 Dose: Not Given Sustiva 600mg Tablet 1 PO HS [facility] Stop: 03/27/17 20:59 Last Admin: 01/28/17 20:50 Dose: 1 Emtricitabine/Tenofovir 200mg-25mg Tab 1 PO HS [facility] Stop: 03/27/17 20:59 Last Admin: 01/28/17 20:50 Dose: 1 Phenytoin (Dilantin) 100 mg PO BID [facility] Stop: 03/28/17 08:59 Last Admin: 01/29/17 09:21 Dose: Not Given Simvastatin (Zocor) 20 mg PO QPM [facility]IK PRN Reason: Protocol Stop: 03/28/17 16:59 Last Admin: 01/28/17 17:59 Dose: 20 mg Zolpidem Tartrate (Ambien) 10 mg PO HS PRN PRN Reason: Insomnia Stop: 03/27/17 20:27 General: weak, alert HEENT: NC/AT, PERRLA Neck: Supple Lungs: CTAB Cardiovascular: RRR, Normal S1, Normal S2, without murmur Abdomen: soft, non-tender, non-distended, positive bowel sound Extremities: excoriation Neurological: alert Internal Medicine Assmt/Plan - Assessment Assessment: ABDOMINAL PAIN HTN HIV HYPONATREMIA-IMPROVED FECAL IMPACTION - Plan Plan: continue ivf for hydration monitor electrolytes fall precautions dc planning once cleared by gi
[2017-01-29] MEDS: SUSTIVA 600 MG PO SCH (21:03)
[2017-01-29] MEDS: EMTRICITABINE PO SCH (21:03)
[2017-01-29] MEDS: TENOFOVIR PO SCH (21:03)
[2017-01-29] MEDS: Albuterol Nebulizer 2.5mg/3mL HHN SCH (22:04)
[2017-01-29] MEDS: Ipratropium Neb 0.5 mg/2.5 mL UD IH PRN (22:05)
[2017-01-29] MEDS: Budesonide 0.5 Mg/2 mL Ud HHN SCH (22:14)
[2017-01-30] MEDS: Morphine Sulfate 2 mg/mL 1mL Syr IVP PRN ×4 (01:13→17:12)
[2017-01-30] MEDS: Ipratropium Neb 0.5 mg/2.5 mL UD IH PRN (03:12)
[2017-01-30 06:15] LABS: % BASOPHILS 0.1 % (0.0-2.0); % EOSINOPHILS 0.8 % (0.0-5.0); % LYMPHOCYTES 17.6 % (20.0-50.0); % MONOCYTES 7.9 % (2.0-10.0); % NEUTROPHILS 73.6 % (40.0-80.0); HEMATOCRIT 40.9 % (41.0-60); MEAN CORPUSCULAR HEMOGLOBIN 34.5 pg (27.0-31.0); MEAN CORPUSCULAR HGB CONC 34.2 pg (28.0-36.0); MEAN PLATELET VOLUME 7.7 fl; NEUTROPHILE ABSOLUTE 6.9 Th/cmm (1.8-8.0); PLATELET COUNT 259 Th/cmm (150-400); RED BLOOD COUNT 4.05 Mil/cmm (3.80-5.10); RED CELL DISTRIBUTION WIDTH 12.2 % (11.5-20.0); WHITE BLOOD COUNT 9.4 Th/cmm (4.8-10.8)
[2017-01-30 06:35] LABS: ANION GAP 9.5 (7.0-16.0); BUN - UREA NITROGEN 6 mg/dL (7-25); CALCIUM SERUM 8.8 mg/dL (8.6-10.3); CHLORIDE 106 mEq/L (98-107); CREATININE - SERUM 0.5 mg/dL (0.6-1.2); GLUCOSE 135 mg/dL (70-105); POTASSIUM SERUM 3.5 mEq/L (3.5-5.1); SODIUM SERUM 135 mEq/L (136-145)
[2017-01-30] MEDS: Budesonide 0.5 Mg/2 mL Ud HHN SCH (07:27)
[2017-01-30] MEDS: Albuterol Nebulizer 2.5mg/3mL HHN SCH ×3 (07:27→15:18)
[2017-01-30] MEDS: Escitalopram Oxalate 5 mg Tab PO SCH (08:24)
[2017-01-30] MEDS: Pantoprazole 40 mg EC Tab PO SCH ×2 (08:24→17:13)
[2017-01-30] MEDS: Multivitamin Tab PO SCH (08:24)
[2017-01-30] MEDS: D5-0.9%NS 1,000 ML IV SCH (10:53)
--- NOTE | 2017-01-30 11:32 | Internal Medicine Prog Note ---
Internal Medicine Subjective - Subjective Service Date: 01/30/17 Patient is:: awake, confused Per staff patient has:: no adverse event, tolerating meds Internal Medicine Objective - Results Result Diagrams: 01/30/17 05:45 01/30/17 05:45 Recent Labs: Laboratory Last Values WBC 9.4 Th/cmm (4.8-10.8) D 01/30/17 05:45 RBC 4.05 Mil/cmm (3.80-5.10) 01/30/17 05:45 Hgb 14.0 gm/dL (12-16) 01/30/17 05:45 Hct 40.9 % (41.0-60) L 01/30/17 05:45 MCV 101.0 fl (81-100) H 01/30/17 05:45 MCH 34.5 pg (27.0-31.0) H 01/30/17 05:45 MCHC Differential 34.2 pg (28.0-36.0) 01/30/17 05:45 RDW 12.2 % (11.5-20.0) 01/30/17 05:45 Plt Count 259 Th/cmm (150-400) 01/30/17 05:45 MPV 7.7 fl 01/30/17 05:45 Neutrophils % 73.6 % (40.0-80.0) 01/30/17 05:45 Lymphocytes % 17.6 % (20.0-50.0) L 01/30/17 05:45 Monocytes % 7.9 % (2.0-10.0) 01/30/17 05:45 Eosinophils % 0.8 % (0.0-5.0) 01/30/17 05:45 Basophils % 0.1 % (0.0-2.0) 01/30/17 05:45 PT 11.6 SECONDS (9.5-11.5) H 01/29/17 04:44 INR 1.11 (0.5-1.4) 01/29/17 04:44 PTT (Actin FS) 26.6 SECONDS (26.0-38.0) 01/26/17 13:05 Sodium 135 mEq/L (136-145) L 01/30/17 05:45 Potassium 3.5 mEq/L (3.5-5.1) 01/30/17 05:45 Chloride 106 mEq/L (98-107) 01/30/17 05:45 Carbon Dioxide 23.0 mEq/L (21.0-31.0) 01/30/17 05:45 Anion Gap 9.5 (7.0-16.0) 01/30/17 05:45 BUN 6 mg/dL (7-25) L 01/30/17 05:45 Creatinine 0.5 mg/dL (0.6-1.2) L 01/30/17 05:45 Est GFR ( Amer) > 60.0 ml/min (>90) 01/30/17 05:45 Est GFR (Non-Af Amer) > 60.0 ml/min 01/30/17 05:45 BUN/Creatinine Ratio 12.0 01/30/17 05:45 Glucose 135 mg/dL (70-105) H 01/30/17 05:45 Calcium 8.8 mg/dL (8.6-10.3) 01/30/17 05:45 Total Bilirubin 0.4 mg/dL (0.3-1.0) 01/26/17 13:05 AST 22 U/L (13-39) 01/26/17 13:05 ALT 15 U/L (7-52) 01/26/17 13:05 Alkaline Phosphatase 119 U/L (34-104) H 01/26/17 13:05 Troponin I 0.01 ng/mL (0.01-0.05) 01/26/17 13:05 Total Protein 7.0 gm/dL (6.0-8.3) 01/26/17 13:05 Albumin 3.7 gm/dL (3.7-5.3) 01/26/17 13:05 Globulin 3.3 gm/dL 01/26/17 13:05 Albumin/Globulin Ratio 1.1 (1.0-1.8) 01/26/17 13:05 Triglycerides 99 mg/dL (<150) 01/26/17 13:05 Cholesterol 144 mg/dL (<200) 01/26/17 13:05 LDL Cholesterol Direct 92 mg/dL (75-193) 01/26/17 13:05 HDL Cholesterol 50 mg/dL (23-92) 01/26/17 13:05 TSH 1.94 uIU/ml (0.34-5.60) 01/26/17 13:05 Phenytoin 11.1 ug/ml (10.0-20.0) 01/26/17 13:05 RPR NONREACTIVE (NONREACTIVE) 01/26/17 13:05 - Physical Exam Vitals and I&O: Vital Signs Temp 99.1 F 01/30/17 08:00 Pulse 88 01/30/17 11:24 Resp 18 01/30/17 11:24 BP 134/72 01/30/17 08:40 Pulse Ox 96 01/30/17 11:24 Intake & Output 01/29/17 01/30/17 01/30/17 18:59 06:59 18:59 Intake Total 1502.356 874 4630 Balance 1502.465 526 4892 Weight (lbs) 161 lb Intake: Intake, IV Amount 1502.639 590 9151 D5-0.9%Ns 1,000 ml @ 80 1502.027 668 8140 mls/hr IV .[id number] [facility] Rx #:[id number] Oral 480 Other: # Voids 3 # Bowel Movements 1 Active Medications: Current Medications Acetaminophen (Tylenol) 650 mg PO Q4H PRN PRN Reason: Pain Or Fever above 101 Stop: 03/27/17 20:27 Last Admin: 01/27/17 15:04 Dose: 650 mg Albuterol Sulfate (Albuterol 2.5mg/3ml Neb Ud) 2.5 mg HHN Q4HRT [facility] Stop: 03/28/17 10:59 Last Admin: 01/30/17 11:24 Dose: 2.5 mg Albuterol Sulfate (Albuterol 2.5mg/3ml Neb Ud) 2.5 mg HHN Q2HRT PRN PRN Reason: Shortness of Breath or Wheeze Stop: 03/27/17 20:27 Last Admin: 01/30/17 03:12 Dose: 2.5 mg Alendronate Sodium (Fosamax) 70 mg PO Q7D@0730 [facility] Stop: 04/02/17 07:29 Aspirin (Ecotrin) 81 mg PO DAILY [facility] Stop: 03/28/17 08:59 Last Admin: 01/30/17 08:24 Dose: 81 mg Baclofen (Lioresal) 5 mg PO DAILY [facility] Stop: 03/28/17 08:59 Last Admin: 01/30/17 08:24 Dose: 5 mg Budesonide (Pulmicort) 0.5 mg HHN BIDRT [facility] Stop: 03/28/17 08:59 Last Admin: 01/30/17 07:27 Dose: 0.5 mg Calcium Carbonate (Os-[place]) 500 mg PO BID [facility] Stop: 03/28/17 08:59 Last Admin: 01/30/17 08:25 Dose: 500 mg Cholecalciferol (Vitamin D3) 1,000 iu PO BID [facility] Stop: 03/28/17 08:59 Last Admin: 01/30/17 08:24 Dose: 1,000 iu Docusate Sodium (Colace) 100 mg PO BID [facility] Stop: 03/28/17 08:59 Last Admin: 01/30/17 08:26 Dose: 100 mg Enalapril Maleate (Vasotec) 5 mg PO BID [facility] Stop: 03/28/17 08:59 Last Admin: 01/30/17 08:40 Dose: 5 mg Escitalopram Oxalate (Lexapro) 5 mg PO DAILY [facility] PRN Reason: Protocol Stop: 03/28/17 08:59 Last Admin: 01/30/17 08:24 Dose: 5 mg Dextrose/Sodium Chloride (D5-0.9%Ns) 1,000 mls @ 80 mls/hr IV .[id number] [facility] Stop: 03/27/17 20:29 Last Admin: 01/30/17 10:53 Dose: 80 mls/hr Ipratropium Arminto (Atrovent Neb 0.5mg/2.5ml) 0.5 mg IH Q2HRT PRN PRN Reason: Shortness of Breath or Wheeze Stop: 03/27/17 20:27 Last Admin: 01/30/17 03:12 Dose: 0.5 mg Mirtazapine (Remeron) 15 mg PO HS [facility]IK PRN Reason: Protocol Stop: 03/27/17 20:59 Last Admin: 01/29/17 21:02 Dose: 15 mg Morphine Sulfate (Morphine) 2 mg IVP Q4H PRN PRN Reason: Abdominal Pain Stop: 03/27/17 20:27 Last Admin: 01/30/17 10:53 Dose: 2 mg Multivitamins/Vitamin C (Theragran) 1 tab PO DAILY [facility] Stop: 03/28/17 08:59 Last Admin: 01/30/17 08:24 Dose: 1 tab Olanzapine (Zyprexa) 15 mg PO HS [facility]IK PRN Reason: Protocol Stop: 03/27/17 20:59 Last Admin: 01/29/17 21:03 Dose: 15 mg Ondansetron HCl (Zofran) 4 mg IV Q8H PRN PRN Reason: Nausea / Vomiting Stop: 03/27/17 20:27 Last Admin: 01/28/17 21:10 Dose: 4 mg Oxybutynin Chloride (Ditropan) 5 mg PO BID [facility] Stop: 03/28/17 08:59 Last Admin: 01/30/17 08:24 Dose: 5 mg Pantoprazole Sodium (Protonix) 40 mg PO BID [facility] Stop: 03/28/17 08:59 Last Admin: 01/30/17 08:24 Dose: 40 mg Sustiva 600mg Tablet 1 PO HS [facility] Stop: 03/27/17 20:59 Last Admin: 01/29/17 21:03 Dose: 1 Emtricitabine/Tenofovir 200mg-25mg Tab 1 PO HS [facility] Stop: 03/27/17 20:59 Last Admin: 01/29/17 21:03 Dose: 1 Phenytoin (Dilantin) 100 mg PO BID [facility] Stop: 03/28/17 08:59 Last Admin: 01/30/17 08:26 Dose: 100 mg Simvastatin (Zocor) 20 mg PO QPM [facility] PRN Reason: Protocol Stop: 03/28/17 16:59 Last Admin: 01/29/17 16:38 Dose: 20 mg Zolpidem Tartrate (Ambien) 10 mg PO HS PRN PRN Reason: Insomnia Stop: 03/27/17 20:27 General: weak, alert HEENT: NC/AT, PERRLA Neck: Supple Lungs: CTAB Cardiovascular: RRR, Normal S1, Normal S2, without murmur Abdomen: soft, non-tender, non-distended, positive bowel sound Extremities: excoriation Neurological: alert Internal Medicine Assmt/Plan - Assessment Assessment: ABDOMINAL PAIN HTN HIV HYPONATREMIA-IMPROVED FECAL IMPACTION - Plan Plan: continue ivf for hydration monitor electrolytes fall precautions dc planning once cleared by gi
--- NOTE | 2017-01-30 12:45 | GI Progress Note ---
Subjective - Review of Systems Service Date: 01/30/17 Subjective: [place] done yesterday, pt doing well. Objective - Results Result Diagrams: 01/30/17 05:45 01/30/17 05:45 Recent Labs: Laboratory Last Values WBC 9.4 Th/cmm (4.8-10.8) D 01/30/17 05:45 RBC 4.05 Mil/cmm (3.80-5.10) 01/30/17 05:45 Hgb 14.0 gm/dL (12-16) 01/30/17 05:45 Hct 40.9 % (41.0-60) L 01/30/17 05:45 MCV 101.0 fl (81-100) H 01/30/17 05:45 MCH 34.5 pg (27.0-31.0) H 01/30/17 05:45 MCHC Differential 34.2 pg (28.0-36.0) 01/30/17 05:45 RDW 12.2 % (11.5-20.0) 01/30/17 05:45 Plt Count 259 Th/cmm (150-400) 01/30/17 05:45 MPV 7.7 fl 01/30/17 05:45 Neutrophils % 73.6 % (40.0-80.0) 01/30/17 05:45 Lymphocytes % 17.6 % (20.0-50.0) L 01/30/17 05:45 Monocytes % 7.9 % (2.0-10.0) 01/30/17 05:45 Eosinophils % 0.8 % (0.0-5.0) 01/30/17 05:45 Basophils % 0.1 % (0.0-2.0) 01/30/17 05:45 PT 11.6 SECONDS (9.5-11.5) H 01/29/17 04:44 INR 1.11 (0.5-1.4) 01/29/17 04:44 PTT (Actin FS) 26.6 SECONDS (26.0-38.0) 01/26/17 13:05 Sodium 135 mEq/L (136-145) L 01/30/17 05:45 Potassium 3.5 mEq/L (3.5-5.1) 01/30/17 05:45 Chloride 106 mEq/L (98-107) 01/30/17 05:45 Carbon Dioxide 23.0 mEq/L (21.0-31.0) 01/30/17 05:45 Anion Gap 9.5 (7.0-16.0) 01/30/17 05:45 BUN 6 mg/dL (7-25) L 01/30/17 05:45 Creatinine 0.5 mg/dL (0.6-1.2) L 01/30/17 05:45 Est GFR ( Amer) > 60.0 ml/min (>90) 01/30/17 05:45 Est GFR (Non-Af Amer) > 60.0 ml/min 01/30/17 05:45 BUN/Creatinine Ratio 12.0 01/30/17 05:45 Glucose 135 mg/dL (70-105) H 01/30/17 05:45 Calcium 8.8 mg/dL (8.6-10.3) 01/30/17 05:45 Total Bilirubin 0.4 mg/dL (0.3-1.0) 01/26/17 13:05 AST 22 U/L (13-39) 01/26/17 13:05 ALT 15 U/L (7-52) 01/26/17 13:05 Alkaline Phosphatase 119 U/L (34-104) H 01/26/17 13:05 Troponin I 0.01 ng/mL (0.01-0.05) 01/26/17 13:05 Total Protein 7.0 gm/dL (6.0-8.3) 01/26/17 13:05 Albumin 3.7 gm/dL (3.7-5.3) 01/26/17 13:05 Globulin 3.3 gm/dL 01/26/17 13:05 Albumin/Globulin Ratio 1.1 (1.0-1.8) 01/26/17 13:05 Triglycerides 99 mg/dL (<150) 01/26/17 13:05 Cholesterol 144 mg/dL (<200) 01/26/17 13:05 LDL Cholesterol Direct 92 mg/dL (75-193) 01/26/17 13:05 HDL Cholesterol 50 mg/dL (23-92) 01/26/17 13:05 TSH 1.94 uIU/ml (0.34-5.60) 01/26/17 13:05 Phenytoin 11.1 ug/ml (10.0-20.0) 01/26/17 13:05 RPR NONREACTIVE (NONREACTIVE) 01/26/17 13:05 - Physical Exam Vitals and I&O: Vital Signs Temp 99.1 F 01/30/17 08:00 Pulse 88 01/30/17 11:24 Resp 18 01/30/17 11:24 BP 134/72 01/30/17 08:40 Pulse Ox 96 01/30/17 11:24 Intake & Output 01/29/17 01/30/17 01/30/17 18:59 06:59 18:59 Intake Total 1502.093 453 2356 Balance 1502.036 167 1105 Weight (lbs) 73.028 kg Intake: Intake, IV Amount 1502.535 225 7914 D5-0.9%Ns 1,000 ml @ 80 1502.183 094 7706 mls/hr IV .[id number] [facility] Rx #:[id number] Oral 480 Other: # Voids 3 # Bowel Movements 1 Active Medications: Current Medications Acetaminophen (Tylenol) 650 mg PO Q4H PRN PRN Reason: Pain Or Fever above 101 Stop: 03/27/17 20:27 Last Admin: 01/27/17 15:04 Dose: 650 mg Albuterol Sulfate (Albuterol 2.5mg/3ml Neb Ud) 2.5 mg HHN Q4HRT [facility] Stop: 03/28/17 10:59 Last Admin: 01/30/17 11:24 Dose: 2.5 mg Albuterol Sulfate (Albuterol 2.5mg/3ml Neb Ud) 2.5 mg HHN Q2HRT PRN PRN Reason: Shortness of Breath or Wheeze Stop: 03/27/17 20:27 Last Admin: 01/30/17 03:12 Dose: 2.5 mg Alendronate Sodium (Fosamax) 70 mg PO Q7D@0730 [facility] Stop: 04/02/17 07:29 Aspirin (Ecotrin) 81 mg PO DAILY [facility] Stop: 03/28/17 08:59 Last Admin: 01/30/17 08:24 Dose: 81 mg Baclofen (Lioresal) 5 mg PO DAILY [facility] Stop: 03/28/17 08:59 Last Admin: 01/30/17 08:24 Dose: 5 mg Budesonide (Pulmicort) 0.5 mg HHN BIDRT [facility] Stop: 03/28/17 08:59 Last Admin: 01/30/17 07:27 Dose: 0.5 mg Calcium Carbonate (Os-Howard) 500 mg PO BID [facility] Stop: 03/28/17 08:59 Last Admin: 01/30/17 08:25 Dose: 500 mg Cholecalciferol (Vitamin D3) 1,000 iu PO BID [facility] Stop: 03/28/17 08:59 Last Admin: 01/30/17 08:24 Dose: 1,000 iu Docusate Sodium (Colace) 100 mg PO BID [facility] Stop: 03/28/17 08:59 Last Admin: 01/30/17 08:26 Dose: 100 mg Enalapril Maleate (Vasotec) 5 mg PO BID [facility] Stop: 03/28/17 08:59 Last Admin: 01/30/17 08:40 Dose: 5 mg Escitalopram Oxalate (Lexapro) 5 mg PO DAILY [facility] PRN Reason: Protocol Stop: 03/28/17 08:59 Last Admin: 01/30/17 08:24 Dose: 5 mg Ipratropium [place] (Atrovent Neb 0.5mg/2.5ml) 0.5 mg IH Q2HRT PRN PRN Reason: Shortness of Breath or Wheeze Stop: 03/27/17 20:27 Last Admin: 01/30/17 03:12 Dose: 0.5 mg Mirtazapine (Remeron) 15 mg PO HS [facility]IK PRN Reason: Protocol Stop: 03/27/17 20:59 Last Admin: 01/29/17 21:02 Dose: 15 mg Morphine Sulfate (Morphine) 2 mg IVP Q4H PRN PRN Reason: Abdominal Pain Stop: 03/27/17 20:27 Last Admin: 01/30/17 10:53 Dose: 2 mg Multivitamins/Vitamin C (Theragran) 1 tab PO DAILY [facility] Stop: 03/28/17 08:59 Last Admin: 01/30/17 08:24 Dose: 1 tab Olanzapine (Zyprexa) 15 mg PO HS [facility]IK PRN Reason: Protocol Stop: 03/27/17 20:59 Last Admin: 01/29/17 21:03 Dose: 15 mg Ondansetron HCl (Zofran) 4 mg IV Q8H PRN PRN Reason: Nausea / Vomiting Stop: 03/27/17 20:27 Last Admin: 01/28/17 21:10 Dose: 4 mg Oxybutynin Chloride (Ditropan) 5 mg PO BID [facility] Stop: 03/28/17 08:59 Last Admin: 01/30/17 08:24 Dose: 5 mg Pantoprazole Sodium (Protonix) 40 mg PO BID [facility] Stop: 03/28/17 08:59 Last Admin: 01/30/17 08:24 Dose: 40 mg Sustiva 600mg Tablet 1 PO HS [facility] Stop: 03/27/17 20:59 Last Admin: 01/29/17 21:03 Dose: 1 Emtricitabine/Tenofovir 200mg-25mg Tab 1 PO HS [facility] Stop: 03/27/17 20:59 Last Admin: 01/29/17 21:03 Dose: 1 Phenytoin (Dilantin) 100 mg PO BID [facility] Stop: 03/28/17 08:59 Last Admin: 01/30/17 08:26 Dose: 100 mg Simvastatin (Zocor) 20 mg PO QPM [facility] PRN Reason: Protocol Stop: 03/28/17 16:59 Last Admin: 01/29/17 16:38 Dose: 20 mg Zolpidem Tartrate (Ambien) 10 mg PO HS PRN PRN Reason: Insomnia Stop: 03/27/17 20:27 General: Alert, Oriented x3 HEENT: Atraumatic, PERRLA Neck: Supple Cardiovascular: Regular rate, Normal S1, Normal S2 Abdomen: Soft, Other (non tender, no rebound, no guarding) Assessment/Plan - Problem List Patient Problems: All Active Problems RIGHT THIGH PAIN (Acute) - Assessment Assessment: # Constipation and change of bowel habits # History of colon polyps Colonoscopy 01/29 showed 3 small polyps. Likely repeat due in 3-5 years depending on pathology results. Doing well otherwise. Plan: - Repeat colo 3-5 years depending on pathology results - normal diet - cont laxative regimen with miralax after dc GI to see as needed, please call with questions
--- NOTE | 2017-01-30 17:02 | Pathology Report ---
[id number] Collection Date: 01/29/2017 Surgeon: Dr. Anurag Chavira Specimen Description: 1. Cecal polyp 2. Transverse colon polyp 3. Sigmoid colon polyp Gross Description: Part I: Received in formalin are two alonso soft tissue fragments ranging from 0.1 to 0.2 cm in greatest dimension. Totally submitted in one cassette labeled A. Gross Description: Part II: Received in formalin is a single alonso soft tissue fragment measuring 0.1 cm in greatest dimension. Totally submitted in one cassette labeled B. Gross Description: Part III: Received in formalin are two alonso soft tissue fragments ranging from 0.1 to 0.2 cm in greatest dimension. Totally submitted in one cassette labeled C. Microscopic Description: Part I: The histologic sections show colon mucosa with focal adenomatous glandular changes present consisting of nuclear enlargement and stratification. The adenomatous glands form tubules consistent with tubular adenoma. Diagnosis: Part I: Benign tubular adenoma, cecal biopsy. Microscopic Description: Part II: The histologic sections show colon mucosa with focal adenomatous glandular changes present consisting of nuclear enlargement and stratification with tubules formed consistent with tubular adenoma. Diagnosis: Part II: Benign tubular adenoma, transverse colon biopsy. Microscopic Description: Part III: The histologic sections show colon mucosa with adenomatous glandular changes present consisting of nuclear enlargement and stratification with tubules formed consistent with tubular adenoma. Diagnosis: Part III: Benign tubular adenoma, sigmoid colon biopsy. [facility]# [id number] [facility]
--- NOTE | 2017-02-13 20:26 | Discharge Summary ---
DATE OF DISCHARGE: 01/30/[address] Dipak Angulo. DISCHARGE DIAGNOSES: Abdominal pain, hypernatremia, hypertension, arthritis, dementia, and HIV. HISTORY OF PRESENT ILLNESS: This is a 56-year-old female who is a resident of [facility] who was brought to [facility] for 1-day history of abdominal pain. PHYSICAL EXAMINATION: GENERAL: The patient is well developed, well nourished, in no acute distress. VITAL SIGNS: Stable. HEENT: Head is normocephalic and atraumatic. NECK: Supple. No mass. LUNGS: Clear bilaterally. HEART: Regular rate and rhythm. ABDOMEN: Soft and nontender. HOSPITAL COURSE: During the hospital stay, the patient was admitted to the med/surg unit. The patient had a CT of abdomen and pelvis done and the impression is copious amount of stool noted. Mild haziness adjacent to the pancreatic head pancreatitis cannot be fluid. The patient was kept on IV fluids for hydration. The patient was also on Protonix as well. GI consult was on board and their plan of care for this patient was to do a colonoscopy. The patient had a colonoscopy done on 01/29/2017. The patient tolerated it well and the impression was colon polyps. The patient had a biopsy done on those colon polyps and the diagnoses from the specimens were cecal polyps, transverse colon polyps, sigmoid colon polyps, and there is benign tubular adenoma on cecal biopsy and benign tubular adenoma on transverse colon biopsy and benign tubular adenoma on sigmoid colon biopsy The patient was stable for discharge. CONDITION UPON DISCHARGE: Fair. DISPOSITION: Board and [facility].2 JOB# [id number]
== END 2017-01-30 17:40 | disposition home or self-care (01) | DRG 247 ==
LOC: ER 12:50 → MSI 17:02
PROVIDERS: ADMIT Internal Medicine; ATTEND Internal Medicine
PROC: 0DBH8ZZ Excision of Cecum, Via Natural or Artificial Opening Endoscopic (ICD-10-PCS; principal; 2017-01-29)
PROC: 0DBL8ZZ Excision of Transverse Colon, Via Natural or Artificial Opening Endoscopic (ICD-10-PCS; 2017-01-29)
PROC: 0DBN8ZZ Excision of Sigmoid Colon, Via Natural or Artificial Opening Endoscopic (ICD-10-PCS; 2017-01-29)
DX: K56.41 Fecal impaction (principal); E87.1 Hypo-osmolality and hyponatremia; F03.90 Unspecified dementia, unspecified severity, without behavioral disturbance, psychotic disturbance, mood disturbance, and anxiety; I10 Essential (primary) hypertension; M19.90 Unspecified osteoarthritis, unspecified site; J44.9 Chronic obstructive pulmonary disease, unspecified; K63.5 Polyp of colon; E78.5 Hyperlipidemia, unspecified; D12.0 Benign neoplasm of cecum; K64.8 Other hemorrhoids
CPT/HCPCS: 36415-UA; 71010-TC; 73501; 73562-TC-RT; 80048-TC; 80053-TC; 80061-TC; 80185-TC; 84443-TC; 84484-TC; 85025-TC; 85610-TC; 85730-TC; 86592-TC; 88305-90; 90779; 93005; 94640; 94760; J2270; J2405; J2704; J7042; J7613; Z7506; Z7610